=== PATIENT | male | born 1970 | race Caucasian/White ===

== ENCOUNTER 2017-07-11 11:40 | Emergency (ER) | payer MEDICARE, MEDICAID ==
--- NOTE | 2017-07-11 14:04 | EDM.PDOC ---
ED HPI GENERAL MEDICAL PROBLEM - General Chief Complaint: Lower Extremity Injury/Pain Stated Complaint: HIP PAIN AND NUMBNESS ON LEFT LEG Time Seen by Provider: 07/11/17 13:47 Source of Information: Reports: Patient, RN Notes Reviewed History Limitations: Reports: No Limitations - History of Present Illness INITIAL COMMENTS - FREE TEXT/NARRATIVE: 47-year-old gentleman presents emergency department day complaint of low back left hip pain as well as left shoulder pain and numbness is been going on for about 4 days he has full range of motion however when he flexes his hip is when pain is generated is concerned he may have dislocated this hip in reduced it himself. He does have a history of cervical fracture several years ago and now has developed some numbness mainly over his digits #2 on the left side full range of motion of the shoulder Left Hip Pain Score (Numeric/FACES): 6 - Related Data Allergies Allergy/AdvReac Type Severity Reaction Status Date / Time amoxicillin Allergy Rash Verified 10/05/16 10:37 latex Allergy Itching Verified 10/05/16 10:36 venom-honey bee Allergy Anaphylactic Verified 10/05/16 10:37 Shock Home Meds: Home Meds Lisinopril [Prinivil] 10 mg PO DAILY 08/03/14 [History] Past Medical History - Past Surgical History HEENT Surgical History: Reports: Tonsillectomy Musculoskeletal Surgical History: Reports: Amputation Social & Family History - Tobacco Use Smoking Status *Q: Unknown Ever Smoked Second Hand Smoke Exposure: Yes - Alcohol Use Days Per Week of Alcohol Use: 0 - Recreational Drug Use Recreational Drug Use: No Review of Systems - Review of Systems Review Of Systems: See Below Constitutional: Reports: No Symptoms Respiratory: Reports: No Symptoms Cardiovascular: Reports: No Symptoms Musculoskeletal: Reports: Joint Pain (Hip pain) Neurological: Reports: Numbness ED EXAM, GENERAL - Physical Exam Exam: See Below Free Text/Narrative:: Examination of the left hip he has full range of motion the hip I cannot appreciate any erythema there is no edema he is tender over the posterior aspect of the hip pedal pulses 2+, examination of shoulders full range of motion of shoulder I can appreciate any point tenderness full range of motion of elbow and wrist sensation appears to be intact, neck is supple no thyromegaly no tracheal deviation no point tenderness palpation cervical region Exam Limited By: No Limitations General Appearance: Alert, WD/WN, No Apparent Distress Respiratory/Chest: No Respiratory Distress, Lungs Clear, Normal Breath Sounds Cardiovascular: Regular Rate, Rhythm, No Murmur Course - Vital Signs Last Recorded V/S: Last Vital Signs Temp 96.8 F 07/11/17 13:46 Pulse 65 07/11/17 13:46 Resp 15 07/11/17 13:46 BP 125/56 L 07/11/17 13:46 Pulse Ox 99 07/11/17 13:46 - Orders/Labs/Meds Labs: Laboratory Tests 07/11/17 07/11/17 07/11/17 Range/Units 14:13 14:13 14:13 WBC 6.6 (4.5-11.0) K/uL RBC 4.69 (4.30-5.90) M/uL Hgb 14.4 (12.0-15.0) g/dL Hct 42.6 (40.0-54.0) % MCV 91 (80-98) fL MCH 31 (27-31) pg MCHC 34 (32-36) % Plt Count 214 (150-400) K/uL Neut % (Auto) 51 (36-66) % Lymph % (Auto) 31 (24-44) % [place] % (Auto) 12 H (2-6) % Eos % (Auto) 5 H (2-4) % Baso % (Auto) 2 H (0-1) % D-Dimer, Quantitative 137 (0.0-400.0) ng/mL Sodium 142 (140-148) mmol/L Potassium 4.0 (3.6-5.2) mmol/L Chloride 106 (100-108) mmol/L Carbon Dioxide 27 (21-32) mmol/L Anion Gap 8.6 (5.0-14.0) mmol/L BUN 17 (7-18) mg/dL Creatinine 0.9 (0.8-1.3) mg/dL Est Cr Clr Drug Dosing 90.16 mL/min Estimated GFR (MDRD) > 60 (>60) Glucose 91 (74-106) mg/dL Calcium 8.7 (8.5-10.1) mg/dL Total Bilirubin 0.8 D (0.2-1.0) mg/dL AST 23 (15-37) U/L ALT 39 (12-78) U/L Alkaline Phosphatase 92 (46-116) U/L Total Protein 7.5 (6.4-8.2) g/dL Albumin 3.9 (3.4-5.0) g/dL Globulin 3.6 H (2.3-3.5) g/dL Albumin/Globulin Ratio 1.1 L (1.2-2.2) Meds: Medications Discontinued Medications Generic Name Dose Route Start Last Admin Trade Name Freq PRN Reason Stop Dose Admin Ketorolac Tromethamine 60 mg 07/11/17 15:18 07/11/17 15:21 Toradol IM 07/11/17 15:19 60 mg ONETIME ONE Administration Departure - Departure Time of Disposition: 15:53 Disposition: Home, Self-Care 01 Condition: Good Clinical Impression: Numbness of left foot - Discharge Information Referrals: Huy Álvarez MD [Primary Care Provider] - Forms: ED Department Discharge Additional Instructions: Please followup with your primary care provider in 3-5 days if not better, please call return to the emergency department with worsening of symptoms. - Assessment/Plan Plan: Assessment Acuity = acute Site and laterality = numbness left foot pain left hip Etiology = unclear etiology suspicious for nerve impingement lumbar spine Manifestations = none Location of injury = Home Lab values = CBC, CMP unremarkable d-dimer within normal limits Plan I did review lab work with him he had good relief of his pain with the Toradol injection plan is to follow-up with primary care for further evaluation of numbness of the left foot Patient was in agreement with the plan all questions were answered, they were instructed to return to the emergency department or call for worsening symptoms. This note was dictated using [employer] voice recognition software please call with any questions.
--- NOTE | 2017-07-11 14:45 | CR ---
Left hip There is normal alignment. There is no fracture. There are no degenerative findings. The soft tissues are unremarkable. Impression: 1. Negative exam.
[2017-07-11] MEDS ORDERED: Ketorolac 60 MG/2 ML SDV IM ONE (15:18)
[2017-07-11 16:41] VITALS: BP 127/55
== END 2017-07-11 16:43 | disposition home or self-care (01) ==
LOC: JP.ED 11:40
DX: R20.0 Anesthesia of skin (principal); M79.672 Pain in left foot; M25.552 Pain in left hip; Z88.1 Allergy status to other antibiotic agents; Z91.040 Latex allergy status; Z91.030 Bee allergy status; Z79.899 Other long term (current) drug therapy; Z98.890 Other specified postprocedural states
CPT/HCPCS: 36415; 73502; 80053; 85025; 85379; 96372; 99284; J1885

== ENCOUNTER 2018-04-28 20:57 | Emergency (ER) | payer MEDICARE, MEDICAID ==
[2018-04-28] MEDS ORDERED: Lactated Ringers 1,000 ML IV ONE (22:02)
[2018-04-28] MEDS ORDERED: Ondansetron 4 MG/2 ML SDV IVPUSH ONE (22:02)
[2018-04-28] MEDS ORDERED: Acetaminophen 325 MG Tab PO ONE (22:05)
--- NOTE | 2018-04-28 22:08 | EDM.PDOC ---
ED HPI GENERAL MEDICAL PROBLEM - General Chief Complaint: Abdominal Pain Stated Complaint: VOMITING/FEVER/BACK PAIN Time Seen by Provider: 04/28/18 21:55 Source of Information: Reports: Patient, RN Notes Reviewed History Limitations: Reports: No Limitations - History of Present Illness INITIAL COMMENTS - FREE TEXT/NARRATIVE: 48-year-old gentleman presents to the emergency department today complaint of nausea vomiting and cough as well as fever he has been ill for about 3 days. Family members are ill as well he does not produce any sputum does not have any diarrhea seems to only have emesis in the morning no chest pain abdominal/epigastric Pain Score (Numeric/FACES): 9 - Related Data Allergies Allergy/AdvReac Type Severity Reaction Status Date / Time amoxicillin Allergy Rash Verified 10/05/16 10:37 latex Allergy Itching Verified 10/05/16 10:36 venom-honey bee Allergy Anaphylactic Verified 10/05/16 10:37 Shock corn oil Allergy Itching Uncoded 04/28/18 21:38 Home Meds: Home Meds Lisinopril [Prinivil] 10 mg PO DAILY 08/03/14 [History] Aspirin [Micky Chewable] 81 mg PO DAILY 04/28/18 [History] atorvaSTATin [Lipitor] 40 mg PO DAILY 04/28/18 [History] Past Medical History HEENT History: Reports: Impaired Vision Cardiovascular History: Reports: High Cholesterol, Hypertension Neurological History: Reports: Brain Injury, Head Trauma Psychiatric History: Reports: Depression, Suicide Attempt, Suicidal Ideation Hematologic History: Reports: Blood Transfusion(s) - Infectious Disease History Infectious Disease History: Reports: Other (See Below) Other Infectious Disease History: patient does not know infectious disease history - Past Surgical History HEENT Surgical History: Reports: Tonsillectomy Musculoskeletal Surgical History: Reports: Amputation, Other (See Below) Other Musculoskeletal Surgeries/Procedures:: right below the knee amputation Social & Family History - Tobacco Use Smoking Status *Q: Never Smoker Second Hand Smoke Exposure: Yes - Caffeine Use Caffeine Use: Reports: Coffee, Tea - Recreational Drug Use Recreational Drug Use: No ED ROS GENERAL - Review of Systems Review Of Systems: See Below Constitutional: Reports: Fever, Chills, Weakness, Fatigue HEENT: Reports: No Symptoms Respiratory: Reports: Shortness of Breath, Cough, Sputum Cardiovascular: Reports: No Symptoms GI/Abdominal: Reports: Nausea, Vomiting. Denies: Abdominal Pain : Reports: No Symptoms Musculoskeletal: Reports: No Symptoms Skin: Reports: No Symptoms Neurological: Reports: No Symptoms Psychiatric: Reports: No Symptoms ED EXAM, GENERAL - Physical Exam Exam: See Below Free Text/Narrative:: General: Male, ill-appearing coughing, alert and oriented x3 HEENT: head is atraumatic normocephalic, eyes pupils equal round reactive to light, sclera clear no conjunctivitis appreciated. Ears tympanic membranes clear and la landmarks and light reflex are present bilaterally canals are clear. Nose no septal deviation, nares are clear, no blood present. Mouth mucosa is moist and pink no erythema or exudate noted in soft palate, tongue is midline uvula is midline, dentition is intact. Neck: Supple no thyromegaly no tracheal deviation. Nodes: Cervical nodes subclavicular nodes nontender no palpable lymphadenopathy noted. Lungs: Breath sounds are coarse but on appreciate any adventitious noises CV: Regular rate and rhythm S1 and S2 appreciated no murmurs rubs or gallops noted. Abdomen: Soft, nontender, no palpable masses or organomegaly appreciated, no distention no guarding bowel sounds are present, . Neuro: Cranial nerves II through XII grossly intact Skin: Warm and dry, intact Extremities: Lower extremity on the left reveals no edema above-knee amputation on the right Course - Vital Signs Last Recorded V/S: Last Vital Signs Temp 99.5 F 04/28/18 21:40 Pulse 116 H 04/28/18 21:40 Resp 16 04/28/18 21:40 BP 136/88 04/28/18 21:40 Pulse Ox 98 04/28/18 21:40 - Orders/Labs/Meds Orders: Active Orders 24 hr Category Date Time Status Vital Signs [RC] Q1H Care 04/28/18 22:02 Active Chest 2V [CR] Urgent Exams 04/28/18 22:03 Taken Labs: Laboratory Tests 04/28/18 04/28/18 04/28/18 Range/Units 22:02 22:17 22:17 WBC 11.4 H (4.5-11.0) K/uL RBC 4.50 (4.30-5.90) M/uL Hgb 13.7 (12.0-15.0) g/dL Hct 40.6 (40.0-54.0) % MCV 90 (80-98) fL MCH 30 (27-31) pg MCHC 34 (32-36) % Plt Count 249 (150-400) K/uL Neut % (Auto) 68 H (36-66) % Lymph % (Auto) 20 L (24-44) % [place] % (Auto) 8 H (2-6) % Eos % (Auto) 4 (2-4) % Baso % (Auto) 1 (0-1) % Sodium 139 L (140-148) mmol/L Potassium 3.3 L (3.6-5.2) mmol/L Chloride 104 (100-108) mmol/L Carbon Dioxide 26 (21-32) mmol/L Anion Gap 12.3 (5.0-14.0) mmol/L BUN 16 (7-18) mg/dL Creatinine 1.0 (0.8-1.3) mg/dL Est Cr Clr Drug Dosing 86.30 mL/min Estimated GFR (MDRD) > 60 (>60) Glucose 122 H (74-106) mg/dL Lactic Acid 1.4 (0.4-2.0) mmol/L Calcium 8.9 (8.5-10.1) mg/dL Total Bilirubin 1.0 (0.2-1.0) mg/dL AST 17 (15-37) U/L ALT 29 (12-78) U/L Alkaline Phosphatase 143 H (46-116) U/L C-Reactive Protein 3.57 H (0.0-0.3) mg/dL Total Protein 7.2 (6.4-8.2) g/dL Albumin 3.5 (3.4-5.0) g/dL Globulin 3.7 H (2.3-3.5) g/dL Albumin/Globulin Ratio 1.0 L (1.2-2.2) Meds: Medications Discontinued Medications Generic Name Dose Route Start Last Admin Trade Name Freq PRN Reason Stop Dose Admin Acetaminophen 650 mg 04/28/18 22:05 04/28/18 23:12 Tylenol PO 04/28/18 22:06 650 mg NOW ONE Administration Lactated Ringer's 1,000 mls @ 999 mls/hr 04/28/18 22:02 04/28/18 23:12 Ringers, Lactated IV 04/28/18 23:02 999 mls/hr BOLUS ONE Administration Ondansetron HCl 4 mg 04/28/18 22:02 04/28/18 23:12 Zofran IVPUSH 04/28/18 22:03 4 mg ONETIME ONE Administration Departure - Departure Time of Disposition: 00:45 Disposition: Home, Self-Care 01 Condition: Good Clinical Impression: Gastroenteritis - Discharge Information Referrals: Huy Álvarez MD [Primary Care Provider] - Forms: ED Department Discharge Additional Instructions: Continue to push fluids, Please followup with your primary care provider in 3- 5 days if not better, please call return to the emergency department with worsening of symptoms. - My Orders Last 24 Hours: My Active Orders 04/28/18 22:02 Vital Signs [RC] Q1H 04/28/18 22:03 Chest 2V [CR] Urgent - Assessment/Plan Last 24 Hours: My Active Orders 04/28/18 22:02 Vital Signs [RC] Q1H 04/28/18 22:03 Chest 2V [CR] Urgent Plan: Assessment Acuity = acute Site and laterality = gastroenteritis Etiology = probable viral cause Manifestations = nausea and vomiting Location of injury = Home Lab values = CBC unremarkable, potassium low at 2.3 consistent hypokalemia, CRP elevated 3.57 chest x-ray I did review films myself I cannot appreciate any acute process, the official read from radiology is pending Plan He had good relief with combination Zofran 1 L fluids plan is to discharge home follow-up primary care 3-5 days if no improvement This note was dictated using [employer] voice recognition software please call with any questions on syntax or grammar.
[2018-04-29 00:51] VITALS: BP 105/59
--- NOTE | 2018-04-29 08:58 | CR ---
CHEST: 2 view CLINICAL HISTORY:Cough COMPARISON:2010 FINDINGS: Heart size and pulmonary vascular normal. No infiltrate effusion or pneumothorax seen. IMPRESSION: No acute cardiopulmonary process
== END 2018-04-29 00:55 | disposition home or self-care (01) ==
LOC: JP.ED 20:57
DX: K52.9 Noninfective gastroenteritis and colitis, unspecified (principal); E78.00 Pure hypercholesterolemia, unspecified; I10 Essential (primary) hypertension; F32.9 Major depressive disorder, single episode, unspecified; Z88.1 Allergy status to other antibiotic agents; Z91.040 Latex allergy status; Z79.82 Long term (current) use of aspirin
CPT/HCPCS: 36415; 71046; 80053; 83605; 85025; 86140; 96361; 96374; 99283; 99284; A9270; J2405; J7120

== ENCOUNTER 2019-10-26 06:19 | Day surgery (SDC) | payer MEDICARE, MEDICAID ==
[2019-10-26] MEDS ORDERED: Propofol 200 MG/20 ML SDV ONE (06:59)
[2019-10-26] MEDS ORDERED: Midazolam 1 MG/ML 2 ML SDV ONE (06:59)
[2019-10-26] MEDS ORDERED: fentaNYL 100 MCG/2 ML SDV ONE (06:59)
[2019-10-26] MEDS ORDERED: Dextrose 5%-Lactated Ringers 1,000 ML IV SCH (07:00)
[2019-10-26] MEDS ORDERED: Glycopyrrolate 0.2 MG/ML 2 ML SDV IVPUSH ONE (07:15)
[2019-10-26] MEDS ORDERED: Pantoprazole 40 MG Vial IVPUSH ONE (07:46)
[2019-10-26 09:09] VITALS: BP 109/69; PULSE 65
--- NOTE | 2019-11-02 09:48 | OR ---
DATE OF PROCEDURE: 10/26/2019 SURGEON: Vernon Ponce MD PREOPERATIVE DIAGNOSIS: Worsening gastroesophageal reflux disease. POSTOPERATIVE DIAGNOSES: Worsening gastroesophageal reflux disease associated with: 1. Moderate hiatal hernia with active gastroesophageal reflux disease. 2. Mild antral gastritis. OPERATIVE PROCEDURES: Esophagogastroduodenoscopy with: 1. Biopsy of esophagogastric junction for histologic evaluation. 2. Biopsies of antrum for CLOtest. ANESTHESIA: IV sedation. CLAM GROWER: Duc Rose MS-3. INDICATIONS FOR PROCEDURE: This is a 49-year-old presenting with progressively worsening gastroesophageal reflux disease. He presently is not on any antisecretory medications. The plan is to proceed with upper endoscopy with biopsies and/or dilation as indicated. Potential risks including bleeding and perforation were discussed, and the patient wishes to proceed. DETAILS OF PROCEDURE: The patient was taken to the operating room and placed in a left lateral decubitus position. IV sedation was administered, after which the upper GI endoscope was passed orally through the length of the esophagus into the stomach with retroflexion view of the fundus, thereafter through the pyloric channel and into the proximal duodenum. Findings included normal hypopharynx, larynx, upper esophageal sphincter, and esophageal body. At the EG junction, the patient was noted to have roughly 2 cm hiatal hernia. This was associated with quite active gastroesophageal reflux disease with mucosa being quite reddened and edematous. No ulcerations were seen per se within the stomach. There was no retained gastric contents i.e. no bezoar formation in what is otherwise longstanding diabetic patient. The patient had some patchy redness in the antrum without erosions or ulcers, and the pyloric channel and duodenum to the junction of 3rd and 4th portions were unremarkable. At this point, biopsies were obtained from the antrum and sent for CLOtest for H. pylori. Multiple biopsies were obtained from esophagogastric junction, sent for histologic evaluation. Minimal bleeding from the biopsy sites was seen and the procedure was then concluded. The patient was taken to the recovery room in satisfactory condition. The plan will be to give the patient some Protonix IV in the recovery room and start Protonix 40 mg daily. We will see him back in [facility] on 11/11/2019 to assess adequacy of treatment. If this is not adequately controlled with medical management, next step would be a surgical antireflux procedure, i.e. David fundoplication. Vernon Ponce MD /[id number]
== END 2019-10-26 09:51 | disposition home or self-care (01) ==
LOC: JP.SDS 06:19
PROVIDERS: ATTEND Surgery
DX: K21.0 Gastro-esophageal reflux disease with esophagitis (principal); K44.9 Diaphragmatic hernia without obstruction or gangrene; K29.70 Gastritis, unspecified, without bleeding; I10 Essential (primary) hypertension; Z91.040 Latex allergy status
CPT/HCPCS: 43239; 87081; C9113; J2250; J2704; J3010; J3490; J7121; 88305

== ENCOUNTER 2021-12-21 07:54 | Day surgery (SDC) | payer MEDICARE, MEDICAID ==
[~2021-12-21 07:54] MED LIST: Dexamethasone 4 MG/ML SDV ONE; Glycopyrrolate 0.2 MG/ML 5 ML MDV ONE; Neostigmine Methylsulfate 1 MG/ML 5 ML Syringe ONE; Ondansetron 4 MG/2 ML SDV ONE; Propofol 200 MG/20 ML SDV ONE; Rocuronium 50 MG/5 ML Vial ONE; Succinylcholine 200 MG/10 ML MDV ONE; fentaNYL 250 MCG/5 ML SDV ONE
[2021-12-21] MEDS ORDERED: Sodium Chloride 0.9% 1,000 ML IV SCH (08:30)
[2021-12-21] MEDS ORDERED: metroNIDAZOLE/Normal Saline 500 MG in Premix Bag 1 BAG IV ONE (09:00)
[2021-12-21] MEDS ORDERED: ceFAZolin 2 GM in Premix Bag 1 BAG IV ONE (09:00)
[2021-12-21] MEDS ORDERED: fentaNYL 250 MCG/5 ML SDV ONE (09:53)
[2021-12-21] MEDS: Lidocaine 1% with EPINEPHrine 1:100,000 50 ML MDV ONE ×2 (10:01→10:35)
[2021-12-21] MEDS: Bupivacaine 0.5% 50 ML MDV ONE ×2 (10:01→10:35)
[2021-12-21] MEDS ORDERED: Sugammadex Sodium 200 MG/2 ML VIAL ONE (10:43)
[2021-12-21] MEDS ORDERED: Acetaminophen/HYDROcodone 325-5 MG Tab PO PRN (11:38)
[2021-12-21] MEDS ORDERED: Ibuprofen 800 MG Tab PO ONE (14:02)
[2021-12-21 16:03] VITALS: BP 126/75; PULSE 65
== END 2021-12-21 17:55 | disposition home or self-care (01) ==
LOC: JP.SDS 07:54 → JP.MS 15:45 → JP.SDS 17:55
PROVIDERS: ATTEND Surgery
DX: K40.20 Bilateral inguinal hernia, without obstruction or gangrene, not specified as recurrent (principal); D17.6 Benign lipomatous neoplasm of spermatic cord; I10 Essential (primary) hypertension; E66.9 Obesity, unspecified; K21.9 Gastro-esophageal reflux disease without esophagitis; G62.9 Polyneuropathy, unspecified; Z91.040 Latex allergy status
CPT/HCPCS: 49505; A9270; C1727; C1781; J0171; J0330; J0690; J1100; J2405; J2704; J2710; J2795; J3010; J3490; J7030; J7120

== ENCOUNTER 2022-01-25 20:15 | Emergency (ER) | payer MEDICARE, MEDICAID ==
[2022-01-25 20:35] VITALS: BP 142/91; PULSE 86
== END 2022-01-25 20:52 | disposition home or self-care (01) ==
LOC: JP.ED 20:15
DX: T81.49XA Infection following a procedure, other surgical site, initial encounter (principal); E78.00 Pure hypercholesterolemia, unspecified; I10 Essential (primary) hypertension; K21.9 Gastro-esophageal reflux disease without esophagitis; E66.9 Obesity, unspecified; Z68.30 Body mass index [BMI] 30.0-30.9, adult; Z91.030 Bee allergy status; Z88.0 Allergy status to penicillin; Z91.040 Latex allergy status; Z88.2 Allergy status to sulfonamides; Z91.018 Allergy to other foods; Z79.82 Long term (current) use of aspirin; Z79.899 Other long term (current) drug therapy
CPT/HCPCS: 99282; 99283

== ENCOUNTER 2022-09-06 14:40 | Emergency (ER) | payer MEDICARE, MEDICAID ==
[2022-09-06 15:12] VITALS: BP 141/89; PULSE 70
== END 2022-09-06 17:42 | disposition home or self-care (01) ==
LOC: JP.ED 14:40
DX: G44.209 Tension-type headache, unspecified, not intractable (principal); E78.00 Pure hypercholesterolemia, unspecified; I10 Essential (primary) hypertension; E66.9 Obesity, unspecified; Z68.38 Body mass index [BMI] 38.0-38.9, adult; Z91.030 Bee allergy status; Z88.0 Allergy status to penicillin; Z91.040 Latex allergy status; Z88.2 Allergy status to sulfonamides; Z91.018 Allergy to other foods; Z79.82 Long term (current) use of aspirin; Z79.899 Other long term (current) drug therapy
CPT/HCPCS: 70450; 99284

== ENCOUNTER 2023-01-03 06:32 | Day surgery (SDC) | payer MEDICARE, MEDICAID ==
[2023-01-03] MEDS ORDERED: Sodium Chloride 0.9% 1,000 ML IV SCH (07:30)
[2023-01-03] MEDS ORDERED: Midazolam 1 MG/ML 2 ML SDV ONE (07:30)
[2023-01-03] MEDS ORDERED: Propofol 200 MG/20 ML SDV ONE (07:30)
[2023-01-03] MEDS ORDERED: fentaNYL 100 MCG/2 ML SDV ONE (07:30)
[2023-01-03 09:44] VITALS: PULSE 82
[2023-01-03 09:48] VITALS: BP 136/95
== END 2023-01-03 10:10 | disposition home or self-care (01) ==
LOC: JP.SDS 06:32
PROVIDERS: ATTEND Surgery
DX: Z12.11 Encounter for screening for malignant neoplasm of colon (principal); D12.3 Benign neoplasm of transverse colon; K57.30 Diverticulosis of large intestine without perforation or abscess without bleeding; I10 Essential (primary) hypertension; K21.9 Gastro-esophageal reflux disease without esophagitis; G62.9 Polyneuropathy, unspecified; E66.9 Obesity, unspecified; I25.2 Old myocardial infarction; Z79.899 Other long term (current) drug therapy; Z88.0 Allergy status to penicillin; Z88.2 Allergy status to sulfonamides; Z91.040 Latex allergy status; Z91.030 Bee allergy status; Z68.37 Body mass index [BMI] 37.0-37.9, adult
CPT/HCPCS: 45385; J2250; J2704; J3010; J7030; 88305

== ENCOUNTER 2023-04-09 22:43 | Emergency (ER) | payer MEDICARE, MEDICAID ==
[2023-04-09 22:49] VITALS: BP 121/87; PULSE 82
[2023-04-09] MEDS ORDERED: Bacitracin Oint 1 GM U/D Packet TOP ONE (23:14)
[2023-04-09] MEDS ORDERED: Sulfamethoxazole/Trimethoprim 800-160 MG Tab PO ONE (23:14)
== END 2023-04-10 00:42 | disposition home or self-care (01) ==
LOC: JP.ED 22:43
DX: L02.415 Cutaneous abscess of right lower limb (principal); E78.00 Pure hypercholesterolemia, unspecified; I10 Essential (primary) hypertension; K21.9 Gastro-esophageal reflux disease without esophagitis; E66.9 Obesity, unspecified; Z68.36 Body mass index [BMI] 36.0-36.9, adult; Z77.22 Contact with and (suspected) exposure to environmental tobacco smoke (acute) (chronic); Z79.899 Other long term (current) drug therapy; Z91.030 Bee allergy status; Z88.0 Allergy status to penicillin; Z91.040 Latex allergy status; Z88.2 Allergy status to sulfonamides; Z91.018 Allergy to other foods; Z79.82 Long term (current) use of aspirin
CPT/HCPCS: 10060; 87070; 87205; 99283; A9270

== ENCOUNTER 2024-11-04 19:34 | Emergency (ER) | payer MEDICARE, MEDICAID ==
[2024-11-04 20:45] VITALS: BP 134/82; PULSE 78
== END 2024-11-04 22:26 | disposition home or self-care (01) ==
LOC: JP.ED 19:34
DX: K64.9 Unspecified hemorrhoids (principal); I10 Essential (primary) hypertension; E78.00 Pure hypercholesterolemia, unspecified; E66.9 Obesity, unspecified; Z79.82 Long term (current) use of aspirin; Z79.899 Other long term (current) drug therapy; Z88.2 Allergy status to sulfonamides; Z91.018 Allergy to other foods; Z88.0 Allergy status to penicillin; Z91.030 Bee allergy status; Z91.040 Latex allergy status; Z68.31 Body mass index [BMI] 31.0-31.9, adult
CPT/HCPCS: 99283

== ENCOUNTER 2025-02-02 22:27 | Emergency (ER) | payer MEDICARE, MEDICAID ==
[2025-02-02 22:43] VITALS: BP 138/76; PULSE 67
== END 2025-02-02 23:33 | disposition home or self-care (01) ==
LOC: JP.ED 22:27
DX: S76.012A Strain of muscle, fascia and tendon of left hip, initial encounter (principal); I10 Essential (primary) hypertension; E78.00 Pure hypercholesterolemia, unspecified; E66.9 Obesity, unspecified; Z88.1 Allergy status to other antibiotic agents; Z88.0 Allergy status to penicillin; Z88.2 Allergy status to sulfonamides; Z91.030 Bee allergy status; Z91.040 Latex allergy status; Z79.899 Other long term (current) drug therapy; Z79.82 Long term (current) use of aspirin; X58.XXXA Exposure to other specified factors, initial encounter
CPT/HCPCS: 99282; 99283